=== PATIENT | male | born 1980 | race Caucasian/White ===

== ENCOUNTER 2018-05-13 17:25 | Emergency (ER) | payer OTHER ==
[~2018-05-13] VITALS: Ht 180.3 cm; Wt 88.5 kg
[~2018-05-13 17:25] MED LIST: DIOVAN160 M1
[2018-05-13] MEDS ORDERED: WELLBUTRIN SR100 MG (17:34)
[2018-05-13] MEDS ORDERED: INDERAL LA80 MG (17:35)
== END 2018-05-13 20:05 | disposition home or self-care (01) ==
LOC: ER 17:25
DX: K14.0 Glossitis (principal)

== ENCOUNTER 2019-02-24 17:08 | Emergency (ER) | payer OTHER ==
[~2019-02-24] VITALS: Ht 180.3 cm; Wt 87.5 kg
[~2019-02-24 17:08] MED LIST changes: +INDERAL LA80 MG; +WELLBUTRIN SR100 MG
[2019-02-24] MEDS ORDERED: COZAAR100 MG (17:47)
[2019-02-24] MEDS ORDERED: TRINTELLIX10 MG (17:47)
== END 2019-02-24 20:51 | disposition home or self-care (01) ==
LOC: ER 17:08
DX: K08.89 Other specified disorders of teeth and supporting structures (principal)

== ENCOUNTER 2019-10-19 10:55 | Emergency (ER) | payer OTHER ==
[~2019-10-19] VITALS: Ht 180.3 cm; Wt 88.5 kg
[~2019-10-19 10:55] MED LIST changes: +COZAAR100 MG; +TRINTELLIX10 MG
== END 2019-10-19 15:16 | disposition home or self-care (01) ==
LOC: ER 10:55
DX: H10.89 Other conjunctivitis (principal)

== ENCOUNTER 2023-08-16 02:01 | Emergency (ER) | payer OTHER ==
[~2023-08-16] VITALS: Ht 180.3 cm; Wt 90.7 kg
[2023-08-16] MEDS ORDERED: INDERAL XL80 MG (02:55)
[2023-08-16] MEDS ORDERED: PROZAC10 MG (02:55)
[2023-08-16] MEDS ORDERED: NORFLEX100MG PO (05:34)
[2023-08-16] MEDS ORDERED: KETO10TA2 PO (05:34)
== END 2023-08-16 05:54 ==
LOC: ER 02:01
DX: S39.82XA Other specified injuries of lower back, initial encounter (principal); W10.0XXA Fall (on)(from) escalator, initial encounter; Y93.89 Activity, other specified; Y92.018 Other place in single-family (private) house as the place of occurrence of the external cause; M54.50 Low back pain, unspecified